=== PATIENT | female | born 1960 | race Asian ===

== ENCOUNTER → 2024-10-17 | Day surgery (SDC) | payer MEDICAID ==
[~2024-10-17] VITALS: Ht 144.8 cm; Wt 56.8 kg
[~2024-10-17] MED LIST: 0.9% SODIUM CHLORIDE 10 ML VIAL ONE; AMLO10TA55 PO; DEXAMETHASONE SOD PHOS 4 MG/ML VIAL ONE; FAMO20 PO; GLYCOPYRROLATE 0.2 MG/ML VIAL ONE; LIDOCAINE/PF 2% 5 ML VIAL ONE; LOSA-382 PO; METF-444 PO; ONDANSETRON HCL 4 MG/2 ML VIAL ONE; PROP10DR4 OU; PROPOFOL 1% 20 ML VIAL IVP ONE; SODIUM CHLORIDE 0.9% 1,000 ML ONE
[2024-10-17 07:21] LABS: GLUCOMETER DEV NAME(LOC) SDS.; GLUCOSE,POINT OF CARE 138 MG/DL (70-110)
[2024-10-17] MEDS: SODIUM CHLORIDE 0.9% 1,000 ML IV ONE (07:26)
== END | disposition still patient (30) ==
LOC: SURGERY 05:53
PROVIDERS: ATTEND Internal Medicine
DX: Z12.11 Encounter for screening for malignant neoplasm of colon (principal); D12.7 Benign neoplasm of rectosigmoid junction; K64.8 Other hemorrhoids; I10 Essential (primary) hypertension; E78.00 Pure hypercholesterolemia, unspecified; E11.9 Type 2 diabetes mellitus without complications; Z79.899 Other long term (current) drug therapy; Z98.890 Other specified postprocedural states; Z98.42 Cataract extraction status, left eye
CPT/HCPCS: 45385; 82962; 88305; J2704; J1100; J3490 ×2; J2405; J7030

== ENCOUNTER 2024-12-19 07:52 | Emergency (ER) | payer MEDICAID, OTHER ==
[~2024-12-19] VITALS: Ht 147.3 cm; Wt 56.8 kg
[~2024-12-19 07:52] MED LIST changes: -0.9% SODIUM CHLORIDE 10 ML VIAL ONE; -DEXAMETHASONE SOD PHOS 4 MG/ML VIAL ONE; -GLYCOPYRROLATE 0.2 MG/ML VIAL ONE; -LIDOCAINE/PF 2% 5 ML VIAL ONE; -ONDANSETRON HCL 4 MG/2 ML VIAL ONE; -PROPOFOL 1% 20 ML VIAL IVP ONE; -SODIUM CHLORIDE 0.9% 1,000 ML ONE
[2024-12-19 07:59] VITALS: TEMP 99
[2024-12-19 08:12] VITALS: BP 100/68; PULSE 86; RESP 18; O2SAT 97
[2024-12-19 08:15] LABS: COVID AG,FIA SOURCE NASAL SWAB
[2024-12-19 08:52] LABS: SARS-COV2 (COVID) ANTIGEN,FIA Negative (Negative)
[2024-12-19 08:53] LABS: INFLUENZA TYPE A NEGATIVE FOR TYPE A (NEGATIVE); INFLUENZA TYPE B NEGATIVE FOR TYPE B (NEGATIVE)
[2024-12-19] MEDS ORDERED: AZIT-167 PO (09:21)
[2024-12-19] MEDS ORDERED: BENZ-227 PO (09:21)
== END 2024-12-19 09:30 | disposition home or self-care (01) ==
LOC: EMS 07:58
DX: J98.4 Other disorders of lung (principal); I10 Essential (primary) hypertension; E78.00 Pure hypercholesterolemia, unspecified; Z79.899 Other long term (current) drug therapy; Z20.822 Contact with and (suspected) exposure to COVID-19
CPT/HCPCS: 71045; 82962; 87804; 99284